=== PATIENT | female | born 1965 | race African-American/Black ===

== ENCOUNTER 2019-02-22 10:38 | Outpatient (CLI) | payer OTHER ==
--- NOTE | 2019-02-22 13:04 | MMO ---
Bilateral MAMMO Bilat Diag [facility]. CLINICAL HISTORY: Patient is 53 years old and is seen for diagnostic exam and palpable abnormality in the left breast. The patient has the following family history of breast cancer: sister, at age 68. The patient has no personal history of cancer. VIEWS: The views performed were: bilateral craniocaudal with tomosynthesis; bilateral mediolateral oblique with tomosynthesis; bilateral mediolateral with tomosynthesis; left exaggerated craniocaudal; and right mediolateral. FILMS COMPARED: The present examination has been compared to a prior imaging study performed at [facility] on 02/22/2019. This study has been interpreted with the assistance of computer-aided detection. MAMMOGRAM FINDINGS: There are scattered fibroglandular densities. Finding 1: There is no radiographic abnormality in the region of the palpable abnormality in the posterior of the left breast in the upper-outer region and in the upper-inner region. Well circumscribed echogenic masses are seen in the palpable regions of interest in the left breast 10:00 and 5:00 position. Please seen ultrasound dictation. Finding 2: There are benign scattered densities in both breasts. IMPRESSION: FINDING 1: PALPABLE ABNORMALITY IN THE LEFT BREAST IS PROBABLY BENIGN. FOLLOW-UP IN 6 MONTHS IS RECOMMENDED. RECOMMEND ULTRASOUND FOLLOW UP ONLY. MASSES ARE NOT VISIBLE ON MAMMOGRAM. THE PATIENT WAS INFORMED OF THE EXAM RESULTS. FINDING 2: FINDINGS IN BOTH BREASTS ARE BENIGN. THE RESULTS OF THIS EXAM WERE SENT TO THE PATIENT. ACR BI-RADS Category 3 - Probably benign finding - short interval follow-up suggested. [facility] will notify the patient of the need for additional imaging services. MAMMOGRAPHY NOTE: 1. A negative mammogram report should not delay a biopsy if a dominant of clinically suspicious mass is present. 2. Approximately 10% to 15% of breast cancers are not detected by mammography. 3. Adenosis and dense breasts may obscure an underlying neoplasm. Reported by: VIDA CAROLINA MD Electonically Signed: [id number]
--- NOTE | 2019-02-22 14:01 | ULT ---
LEFT BREAST DIAGNOSTIC ULTRASOUND: INDICATIONS: Palpable abnormalities in the left breast at the 10 o'clock and 5 o'clock positions without mammograp hic correlate. FINDINGS: Within the palpable region of interest, in the left breast 10 o'clock position, greater than 15 cm fr om the nipple, along the upper medial left chest wall, is a well circumscribed, 2.5 x 0.8 x 2.1 cm, s lightly echogenic, well circumscribed mass. An additional well circumscribed mass is seen within the left breast 5 o'clock palpable abnormality, greater than 15 cm from the nipple, measuring 3 x 3.4 x 1 .3 cm. There is a small central area of hypoechogenicity and shadowing seen within the central aspect of this lesion. This lesion is slightly more echogenic than the upper medial chest wall mass lesion and has a similar echogenicity pattern of the subcutaneous fat. IMPRESSION: BI-RADS category 3 - probably benign. Suspected intramammary lipoma without definite mammographic cor relates. These lesions are well circumscribed and have similar echogenicity of the underlying subcuta neous fat, suspicious for small lipomas. As a conservative measure would recommend a follow-up left b reast ultrasound in six months to document stability. The patient was counseled on the findings [facility]. POS: OFF
== END 2019-02-22 10:39 | disposition home or self-care (01) ==
LOC: BICMAMMO 10:38
PROVIDERS: ATTEND Nurse Practitioner
DX: N63.20 Unspecified lump in the left breast, unspecified quadrant (principal)
CPT/HCPCS: 77066; G0279